=== PATIENT | female | born 1995 | race Caucasian/White ===

== ENCOUNTER 2018-06-15 13:28 | Emergency (ER) | payer SELFPAY ==
[2018-06-15] MEDS ORDERED: NA CHLORIDE 0.9% 1,000 ML ONE (14:08)
[2018-06-15] MEDS ORDERED: ONDANSETRON 4 MG/2 ML VIAL ONE (14:08)
[2018-06-15 14:19] LABS: Absolute Lymphocytes (CBC) 2.2 K/uL (0.7-4.9); Absolute Monocytes 0.7 K/uL (0.1-1.3); Absolute Neutrophil 4.7 K/uL (1.8-8.0); Basophils % 0.6 % (0-1.3); Eosinophils % 1.6 % (0-4.4); Hematocrit 41.1 % (36.0-45.0); Lymphocytes % 28.6 % (15.3-44.8); Monocytes % 8.8 % (3.3-12.3); RBC Red Blood Cell Count 4.41 M/uL (3.86-4.86)
[2018-06-15 14:38] LABS: ALT/SGPT 14 U/L (12-78); AST/SGOT 10 U/L (15-37); Albumin 3.8 g/dL (3.4-5.0); Alkaline Phosphatase 65 U/L (45-117); BUN Blood Urea Nitrogen 9 mg/dL (7-18); Bicarbonate 26 mmol/L (21-32); Bilirubin Direct 0.1 mg/dL (0-0.2); Bilirubin Total 0.5 mg/dL (0.2-1.0); Glucose Level 85 mg/dL (74-106); Lipase 74 U/L (73-393); Potassium 3.8 mmol/L (3.5-5.1); Protein, Total 7.2 g/dL (6.4-8.2); Sodium Level 142 mmol/L (136-145)
[2018-06-15 16:05] LABS: Urine Blood NEGATIVE (NEG); Urine Glucose NEGATIVE (NEG); Urine Specific Gravity 1.025 (1.005-1.030)
[2018-06-15 16:06] LABS: Urine Protein NEGATIVE (NEG)
--- NOTE | 2018-06-15 16:47 | RAD REPORT ---
EXAM DESCRIPTION: CT - Abdomen Pelvis W Contrast - 06/15/2018 4:24 pm COMPARISON: None. TECHNIQUE: Biphasic, helical CT imaging of the abdomen and pelvis was performed following 100 ml non -ionic IV contrast. Oral contrast was given. All CT scans are performed using dose optimization technique as appropriate and may include automated exposure control or mA/KV adjustment according to patient size. FINDINGS: No suspicious findings in the lung bases. The liver, spleen, and pancreas show no suspicious findings. Gallbladder and biliary tree are also wi thout suspicious finding. Symmetric renal function is seen with no hydronephrosis or suspicious renal mass. No pyelonephritis o r acute parenchymal process. No bladder abnormalities. No adrenal abnormalities. No dilated bowel loops or bowel wall thickening. No appendicitis findings or other emergent GI proces s. Patient has a few small mesenteric lymph nodes present. No free air pneumatosis. Trace amount of f ree fluid is present in the cul-de-sac well within physiologic limits. Uterus is deviated to the left but otherwise unremarkable. No left ovarian abnormality. Right ovary contains a 2.4 centimeter cyst. No cyst rupture or hemorrhage findings. No hernia, mass or bulky lymphadenopathy. No suspicious bony findings. IMPRESSION: Contrast enhanced CT abdomen and pelvis showing no suspicious or emergent finding. Full findings detailed in the body of the report.
--- NOTE | 2018-06-15 17:03 | ER ---
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 Transition of care: patient was not received from another setting of care. Onset of symptoms was June 15, 2018. Risk Assessment: Do you want to hurt yourself or someone else? Patient reports no desire to harm self or others. Initial Sepsis Screen: Does the patient meet any 2 criteria? Yes Does the patient have a suspected source of infection? Yes:. Care prior to arrival: None. 13:40 Method Of Arrival: Ambulatory 13:40 Acuity: BRITTANY 3 hj Triage Assessment: 13:43 General: Appears in no apparent distress. uncomfortable, Behavior is calm, cooperative, hj appropriate for age. Pain: Complains of pain in abdomen. EENT: No signs and/or symptoms were reported regarding the EENT system. Neuro: Level of Consciousness is awake, alert, obeys commands, Oriented to person, place, time, situation, Appropriate for age. Cardiovascular: Capillary refill < 3 seconds Patient's skin is warm and dry. Respiratory: Airway is patent Respiratory effort is even, unlabored, Respiratory pattern is regular, symmetrical. GI: Reports lower abdominal pain, constipation, nausea. : No signs and/or symptoms were reported regarding the genitourinary system. Derm: No signs and/or symptoms reported regarding the dermatologic system. Musculoskeletal: No signs and/or symptoms reported regarding the musculoskeletal system. 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 - Social history:: Smoking status: Patient/guardian denies using tobacco, Patient/guardian denies using alcohol. - Ebola Screening: : Patient negative for fever greater than or equal to 101.5 degrees Fahrenheit, and additional compatible Ebola Virus Disease symptoms Patient denies exposure to infectious person Patient denies travel to an Ebola-affected area in the 21 days before illness onset. - Family history:: not pertinent. - Hospitalizations: : No recent hospitalization is reported. Screenin:44 Abuse screen: Denies threats or abuse. Denies injuries from another. Nutritional hj screening: No deficits noted. Tuberculosis screening: No symptoms or risk factors identified. Fall Risk None identified. Assessment: 13:44 GI: Bowel sounds present X 4 quads. Abd is soft and non tender. hj 13:44 Reassessment: see triage for assessment;. hj 14:15 Reassessment: Patient and/or family updated on plan of care and expected duration. Pain hj level reassessed. Patient is alert, oriented x 3, equal unlabored respirations, skin warm/dry/pink. pt drinking contrast;. 14:20 Reassessment: Called CT notified that pt finished contrast. pc1 15:03 Reassessment: Patient and/or family updated on plan of care and expected duration. Pain hj level reassessed. Patient is alert, oriented x 3, equal unlabored respirations, skin warm/dry/pink. awaiting CT imaging;. 15:30 Reassessment: Patient and/or family updated on plan of care and expected duration. Pain hj level reassessed. Patient is alert, oriented x 3, equal unlabored respirations, skin warm/dry/pink. wheeled to CT;. 16:43 Reassessment: Patient and/or family updated on plan of care and expected duration. Pain pc1 level reassessed. Patient is alert, oriented x 3, equal unlabored respirations, skin warm/dry/pink. 16:54 Reassessment: Patient and/or family updated on plan of care and expected duration. Pain hj level reassessed. Patient is alert, oriented x 3, equal unlabored respirations, skin warm/dry/pink. provider in room for POC;. Vital Signs: 13:43 BP 99 / 64; Pulse 67; Resp 14; Temp 98.6; Pulse Ox 99% on R/A; Weight 68.04 kg; Height pc1 5 ft. 2 in. (157.48 cm); 13:52 BP 115 / 72; Pulse 67; Resp 18; Pulse Ox 100% on R/A; hj 15:03 BP 113 / 73; Pulse 60; Resp 18; Pulse Ox 100% on R/A; hj 15:42 BP 100 / 76; Pulse 65; Resp 18; Pulse Ox 100% on R/A; hj 16:43 BP 140 / 79; Pulse 17; Resp 60; Pulse Ox 97% ; pc1 13:43 Body Mass Index 27.44 (68.04 kg, 157.48 cm) pc1 ED Course: 13:35 Patient arrived in ED. mr 13:35 None, None is Private Physician. mr 13:40 Abhinav Greene MD is Attending Physician. rn 13:40 Braden Gross RN is Primary Nurse. hj 13:41 Triage completed. hj 13:44 Arm band placed on right wrist. hj 13:45 Patient has correct armband on for positive identification. Placed in gown. Bed in low hj position. Call light in reach. Side rails up X 1. Adult w/ patient. 14:05 Initial lab(s) drawn, by me, sent to lab. Inserted saline lock: 20 gauge in left hj antecubital area, using aseptic technique. Blood collected. 14:07 Urine collected: clean catch specimen, clear. 5 14:10 Basic Metabolic Panel Sent. hj 14:10 CBC with Diff Sent. hj 14:10 Hepatic Function Sent. hj 14:10 Lipase Sent. hj 15:[address] via wheelchair. vm2 16:[address]. pc1 16:24 CT Abd/Pelvis - W/Contrast In Process Unspecified. EDMS 17:08 No provider procedures requiring assistance completed. IV discontinued, intact, hj bleeding controlled, No redness/swelling at site. Pressure dressing applied. Administered Medications: 14:05 Drug: Zofran 4 mg Route: IVP; Site: left antecubital; hj 14:11 Follow up: Response: No adverse reaction; Nausea is decreased hj 14:05 Drug: NS 0.9% 1000 ml Route: IV; Rate: 1000 ml; Site: left antecubital; hj 15:44 Follow up: IV Status: Completed infusion; IV Intake: 1000ml hj Intake: 15:44 IV: 1000ml; Total: 1000ml. hj Outcome: 17:01 Discharge ordered by . rn 17:08 Discharged to home ambulatory, with family. debbie 17:08 Condition: stable 17:08 Discharge instructions given to patient, family, Instructed on discharge instructions, follow up and referral plans. medication usage, Demonstrated understanding of instructions, follow-up care, medications, Prescriptions given X 2. 17:09 Patient left the ED. debbie Signatures: Dispatcher [employer] EDCharla Wilson Roman, MD MD rn Joaquin, Henry, RN RN hj Martinez, Maria [facility] Dawna Mora [facility] Mikal Metz pc1
--- NOTE | 2018-06-15 17:04 | EDPHYS ---
Physician Documentation [facility] Name: Umm Kim Age: 23 yrs Sex: Female : 1995 Arrival Date: 06/15/2018 Time: 13:35 Bed 18 Private MD: None, None ED Physician Abhinav Greene HPI: 06/15 16:04 This 23 yrs old Female presents to ER via Ambulatory with complaints of rn Abdominal Pain. 16:04 The patient presents with abdominal pain in the periumbilical area. Onset: The rn symptoms/episode began/occurred 3 day(s) ago. The symptoms do not radiate. Associated signs and symptoms: Pertinent positives: nausea and vomiting, constipation, Pertinent negatives: fever, hematuria, shortness of breath, vaginal discharge, vomiting blood. Modifying factors: The symptoms are alleviated by nothing, the symptoms are aggravated by touching the area. Severity of pain: At its worst the pain was moderate in the emergency department the pain has improved. The patient has not experienced similar symptoms in the past. 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 - Social history:: Smoking status: Patient/guardian denies using tobacco, Patient/guardian denies using alcohol. - Ebola Screening: : Patient negative for fever greater than or equal to 101.5 degrees Fahrenheit, and additional compatible Ebola Virus Disease symptoms Patient denies exposure to infectious person Patient denies travel to an Ebola-affected area in the 21 days before illness onset. - Family history:: not pertinent. - Hospitalizations: : No recent hospitalization is reported. ROS: 16:04 Constitutional: Negative for fever, chills, and weight loss, Eyes: Negative for injury, rn pain, redness, and discharge, Neck: Negative for injury, pain, and swelling, Cardiovascular: Negative for chest pain, palpitations, and edema, Respiratory: Negative for shortness of breath, cough, wheezing, and pleuritic chest pain, Abdomen/GI: + abd pain, nausea/vomiting/constipation Back: Negative for injury and pain, : Negative for injury, bleeding, discharge, and swelling, MS/Extremity: Negative for injury and deformity, Neuro: Negative for headache, weakness, numbness, tingling, and seizure. Exam: 16:04 Constitutional: This is a well developed, well nourished patient who is awake, alert, rn and in no acute distress. Head/Face: Normocephalic, atraumatic. Eyes: Pupils equal round and reactive to light, extra-ocular motions intact. Lids and lashes normal. Conjunctiva and sclera are non-icteric and not injected. Cornea within normal limits. Periorbital areas with no swelling, redness, or edema. ENT: MMM Abdomen/GI: soft, mild periumbilical tenderness, no rebound/guarding Skin: Warm, dry with normal turgor. Normal color with no rashes, no lesions, and no evidence of cellulitis. MS/ Extremity: Pulses equal, no cyanosis. Neurovascular intact. Full, normal range of motion. Equal circumference. Neuro: Awake and alert, GCS 15, oriented to person, place, time, and situation. Cranial nerves II-XII grossly intact. Motor strength 5/5 in all extremities. Sensory grossly intact. Cerebellar exam normal. Vital Signs: 13:43 BP 99 / 64; Pulse 67; Resp 14; Temp 98.6; Pulse Ox 99% on R/A; Weight 68.04 kg; Height pc1 5 ft. 2 in. (157.48 cm); 13:52 BP 115 / 72; Pulse 67; Resp 18; Pulse Ox 100% on R/A; hj 15:03 BP 113 / 73; Pulse 60; Resp 18; Pulse Ox 100% on R/A; hj 15:42 BP 100 / 76; Pulse 65; Resp 18; Pulse Ox 100% on R/A; hj 16:43 BP 140 / 79; Pulse 17; Resp 60; Pulse Ox 97% ; pc1 13:43 Body Mass Index 27.44 (68.04 kg, 157.48 cm) pc1 MDM: 13:40 Patient medically screened. rn 17:00 Differential diagnosis: appendicitis, diverticulitis, gastritis, gastroesophageal rn reflux disease, non-specific abd pain, pancreatitis, Peptic Ulcer Disease, Ureterolithiasis, urinary tract infection. Data reviewed: vital signs, nurses notes, lab test result(s), radiologic studies, CT scan, and as a result, I will discharge patient. Counseling: I had a detailed discussion with the patient and/or guardian regarding: the historical points, exam findings, and any diagnostic results supporting the discharge/admit diagnosis, lab results, radiology results, the need for outpatient follow up, the need to transfer to another facility. Response to treatment: the patient's symptoms have mildly improved after treatment, and as a result, I will discharge patient. Special discussion: Based on the patient's Hx, exam, and Dx evaluation, there is no indication for emergent surgery or inpatient Tx. It is understood by the patient/guardian that if the Sx's persist or worsen they need to return immediately for re-evaluation. I discussed with the patient/guardian in detail that at this point there is no indication for admission to the hospital. It is understood, however, that if the symptoms persist or worsen the patient needs to return immediately for re-evaluation. 06/15 13:55 Order name: Basic Metabolic Panel; Complete Time: 14:54 06/15 13:55 Order name: CBC with Diff; Complete Time: 14:54 06/15 13:55 Order name: Hepatic Function; Complete Time: 14:54 06/15 13:55 Order name: Lipase; Complete Time: 14:54 06/15 15:42 Order name: Urine Dipstick--Ancillary (enter results); Complete Time: 16:12 06/15 15:42 Order name: Urine --Ancillary (enter results); Complete Time: 16:12 06/15 13:55 Order name: IV Saline Lock; Complete Time: 14:10 06/15 13:55 Order name: Labs collected and sent; Complete Time: 14:10 06/15 13:55 Order name: CT Abd/Pelvis - W/Contrast; Complete Time: 16:50 06/15 13:55 Order name: Urine Dipstick-Ancillary (obtain specimen); Complete Time: 14:07 06/15 13:55 Order name: Urine Test (obtain specimen); Complete Time: 14:07 rn Administered Medications: 14:05 Drug: Zofran 4 mg Route: IVP; Site: left antecubital; hj 14:11 Follow up: Response: No adverse reaction; Nausea is decreased hj 14:05 Drug: NS 0.9% 1000 ml Route: IV; Rate: 1000 ml; Site: left antecubital; 15:44 Follow up: IV Status: Completed infusion; IV Intake: 1000ml Disposition: 06/15/18 17:01 Discharged to Home. Impression: Nonspecific mesenteric lymphadenitis, Unspecified ovarian cysts. - Condition is Stable. - Discharge Instructions: Mesenteric Adenitis, Pediatric, Ovarian Cyst. - Prescriptions for Zofran ODT 4 mg Oral tablet,disintegrating - place 1 tablet by TRANSLINGUAL route every 8 hours; 20 tablet. Diclofenac Sodium 75 mg Oral Tablet Sustained Release - take 1 tablet by ORAL route 2 times per day; 30 tablet. - Medication Reconciliation Form, Thank You Letter, Antibiotic Education, Prescription Opioid Use, Work release form form. - Follow up: Private Physician; When: As needed; Reason: Recheck today's complaints, Re-evaluation by your physician. - Problem is new. - Symptoms have improved. Signatures: Dispatcher [employer] EDMS Abhinav Greene MD MD rn Joaquin, Henry, RN RN hj Corrections: (The following items were deleted from the chart) 17:09 17:01 06/15/2018 17:01 Discharged to Home. Impression: Nonspecific mesenteric hj lymphadenitis; Unspecified ovarian cysts. Condition is Stable. Forms are Medication Reconciliation Form, Thank You Letter, Antibiotic Education, Prescription Opioid Use. Follow up: Private Physician; When: As needed; Reason: Recheck today's complaints, Re-evaluation by your physician. Problem is new. Symptoms have improved. rn
== END 2018-06-15 17:09 | disposition home or self-care (01) ==
LOC: ER 13:28
DX: I88.0 Nonspecific mesenteric lymphadenitis (principal)
CPT/HCPCS: 36415; 74177; 80048; 80076; 81003; 81025; 83690; 85025; 96361; 96374; 99284; J2405; J7030; Q9967

== ENCOUNTER 2018-07-28 14:13 | Emergency (ER) | payer SELFPAY ==
[2018-07-28] MEDS ORDERED: MORPHINE 4 MG/ML SYR ONE ×3 (14:40→15:27)
[2018-07-28] MEDS ORDERED: ONDANSETRON 4 MG/2 ML VIAL ONE (14:40)
[2018-07-28] MEDS ORDERED: NA CHLORIDE 0.9% 1,000 ML ONE (14:41)
[2018-07-28] MEDS ORDERED: SILVER SULFADIAZINE 1% 50 GM TOP ONE (14:50)
[2018-07-28] MEDS ORDERED: FLUORESCEIN SODIUM 1 MG/WRAP ONE (15:32)
[2018-07-28] MEDS ORDERED: TETRACAINE HCL 0.5% 2ML OPTH ONE (15:32)
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
== END 2018-07-28 17:50 | disposition short-term general hospital (02) ==
LOC: ER 14:13
DX: T23.202A Burn of second degree of left hand, unspecified site, initial encounter (principal); T23.232A Burn of second degree of multiple left fingers (nail), not including thumb, initial encounter; T20.10XA Burn of first degree of head, face, and neck, unspecified site, initial encounter; T22.10XA Burn of first degree of shoulder and upper limb, except wrist and hand, unspecified site, initial encounter; T24.102A Burn of first degree of unspecified site of left lower limb, except ankle and foot, initial encounter; T31.0 Burns involving less than 10% of body surface; X10.2XXA Contact with fats and cooking oils, initial encounter
CPT/HCPCS: 96361; 96374; 96375; 99285; J2405; J7030